=== PATIENT | male | born 1970 | race Two or more races ===

== ENCOUNTER 2024-08-01 09:02 | Emergency (ER) | payer MEDICAID, SELFPAY ==
[2024-08-01 09:22] VITALS: BP 166/85; PULSE 54; RESP 20; TEMP 36.6; O2SAT 100
[2024-08-01 09:23] VITALS: BMI 22.2
--- NOTE | 2024-08-01 09:40 | XR_ITS ---
Examination: PA lateral chest 2 views TECHNIQUE: Upright PA lateral chest 2 views Exam date and time: August 01, 2024 1007 hours INDICATIONS: Chest pain beginning 2 days ago. FINDINGS: Moderate hyperexpansion Normal heart size No pneumonia or pulmonary edema Old fracture right eighth rib posteriorly IMPRESSION: No pneumonia or pulmonary edema
--- NOTE | 2024-08-01 10:43 | EDNOTE_ITS ---
<Statement entered by Devika Davis MD - 08/01/24 16:28> As co-signing physician, I was present and available for consult prn. I concur with the plan and care as documented by the midlevel provider. ED Chest Pain RME/HPI General Chief Complaint: Chest Pain Stated Complaint: RIGHT CHEST ARM PAIN X 6 DAYS Time Seen by Provider: 08/01/24 09:40 Arrival date/time: 08/01/24 09:02 54-year-old male presents emergency department today with significant other patient reports he was messing around with her around 6 days ago he says they were play fighting and she accidentally kicked him in the right side of his chest patient reports since then has been having pain Limitations: no limitations Related Data Previous Rx's ?Medication ?Instructions ?Recorded cyclobenzaprine 10 mg tablet 10 mg PO TID PRN muscle spasm 10 08/01/24 days #30 tab-caps ibuprofen 600 mg tablet 600 mg PO Q6H #30 tabs 08/01/24 Allergies Allergy/AdvReac Type Severity Reaction Status Date / Time No Known Allergies Allergy Verified 08/01/24 09:03 Review of Systems Review of Systems Systems Reviewed: All systems reviewed, normal except as documented Constitutional Constitutional: Reports system reviewed and no additional complaints, except as documented, Denies fever(s) and Denies headache(s) Eyes Eyes: Reports system reviewed and no additional complaints, except as documented and Denies blurry vision ENT Ears, Nose, Mouth, and Throat: Reports system reviewed and no additional complaints, except as documented, Denies headache(s), Denies nasal congestion and Denies nasal discharge Cardiovascular Cardiovascular: Reports system reviewed and no additional complaints, except as documented, Reports chest pain and Denies dyspnea Respiratory Respiratory: Reports system reviewed and no additional complaints, except as documented, Denies chest congestion, Denies cough and Denies dyspnea Gastrointestinal Gastrointestinal: Reports system reviewed and no additional complaints, except as documented and Denies abdominal pain Integumentary/Breasts Skin/Breast: Reports system reviewed and no additional complaints, except as documented and Denies rash Neurologic Neurologic: Reports system reviewed and no additional complaints, except as documented, Reports as per HPI and Denies headache(s) Past Medical History Past Medical History NEUROLOGIC: Negative Neurological Disorders CARDIAC: Negative Cardiac Disorders ED Exam General Limitations: Present no limitations General appearance: Present alert and in no apparent distress Head Head exam: Present atraumatic, normocephalic and normal inspection Eye Eye exam: Present normal appearance, PERRL and EOMI; Absent conjunctival injection ENT ENT exam: Present normal exam, normal oropharynx and mucous membranes moist Neck Neck exam: Present normal inspection, full ROM and trachea midline Chest Chest inspection: Present normal inspection and symmetric chest wall rise Respiratory Respiratory exam: Present normal lung sounds bilaterally; Absent respiratory distress, wheezes or stridor Cardiovascular Cardiovascular exam: Present regular rate, normal rhythm and normal heart sounds Abdominal Exam Abdominal exam: Present soft and normal bowel sounds Extremities Exam Extremities exam: Present normal inspection and full ROM Back Exam Back exam: Present normal inspection and full ROM Neurological Exam Neurological exam: Present alert, oriented X3 and CN II-XII intact Psychiatric Psychiatric exam: Present normal affect and normal mood Skin Skin exam: Present warm, dry, intact and normal color Course Quality Measures none Orders Category Date Time Status XR chest 2V Stat Exams 08/01/24 09:40 Completed Vital Signs Vital signs: Vital Signs Temperature 97.9 F 08/01/24 09:22 Pulse Rate 54 L 08/01/24 09:22 Respiratory Rate 20 08/01/24 09:22 Blood Pressure 166/85 H 08/01/24 09:22 Pulse Oximetry (%) 100 08/01/24 09:22 Oxygen Delivery Method Room Air 08/01/24 09:22 O2 saturation 100% room air within normal limits Chest Pain MDM Narrative MDM Narrative:: 54-year-old male presents emergency department today with significant other patient reports he was messing around with her around 6 days ago he says they were play fighting and she accidentally kicked him in the right side of his chest patient reports since then has been having pain On exam patient well-appearing patient does not appear ill or toxic On exam patient has no tachypnea or dyspnea no creased work of breathing no left-sided chest pain X-ray of the chest obtained no acute emergent findings noted Patient discharged home with muscle relaxants and pain medication Patient discharged home in no distress to follow-up with primary care doctor in the next 24 to 48 hours and for any worsening symptoms to return to the ER immediately Patient data External records reviewed:: [facility] previous records Clinical information provided by:: patient Social determinants that could affect healthcare access:: none Patient has the following chronic illnesses:: None How is presenting disease/condition affected by chronic disease/condition?: no chronic disease Evaluation data The following diagnostics were reviewed and interpreted by me:: radiology exam(s) Lab and/or radiology exams considered but not ordered:: Radiology obtain Interpretation Summary: Reviewed by me Medications / Prescriptions Medications or Prescriptions considered but not ordered:: Given Medication administrations:: Given Consultations Consultation(s) initiated? (list below): No Diagnosis Chest Pain Differential Diagnosis: fracture of rib, unstable angina pectoris, atypical chest pain, st elevation myocardial infarction, costochondritis and chest pain Most likely diagnosis given after review of the tests above:: Chest pain Admission Indicated Admission indicated?: not indicated Admission Request Was there a request for admission?: No Disposition Plan Disposition Plan: Discharge Discharge Attestation Discharge Attestation: The patient and all family members were given an opportunity to ask questions and understood the discharge instructions. Discharge instructions specifically effects, indications for sooner follow up or return to the emergency department, and the expected course of current diagnosis. Patient condition: Stable Discharge Plan Plan Patient Disposition: HOME (Self Care) Disposition Comment: Stable Prescriptions/Referrals Prescriptions/Med Rec: New cyclobenzaprine 10 mg tablet 10 mg PO TID PRN (Reason: muscle spasm) 10 Days Qty: 30 0RF ibuprofen 600 mg tablet 600 mg PO Q6H Qty: 30 0RF Referrals: No Primary/Family,Physician [Primary Care Provider] - 08/02/24 Problem List Clinical Impression: Chest wall pain Patient/Caregiver Discharge Instructions Education Materials: ED Chest Pain, Noncardiac Additional Instructions: Please follow up with your primary care doctor in the next 24-48hrs for any worsening symptoms return here immediately Print Language: Azeri Stand Alone Forms: Raina Award Info., Work/School Release, Patient Portal Info Letter PA/[employer] Supervising Physician PA/DERICK Supervising Physician: Dr. DAVIS
== END 2024-08-01 10:50 | disposition home or self-care (01) ==
PROVIDERS: Emergency Provider Emergency Medicine
DX: R07.89 Other chest pain (principal); M79.601 Pain in right arm
CPT/HCPCS: 71046; 99283